=== PATIENT | female | born 1980 | race Hispanic/Latino ===

== ENCOUNTER 2019-08-05 | Emergency (ER) | payer SELFPAY ==
[2019-08-05 10:28] LABS: HEMATOCRIT 44.4 % (37.0-47.0); HEMOGLOBIN 14.8 g/dl (12.0-16.0); IMMATURE GRANULOCYTES 0.3 % (0.0-5.0); MEAN CELL VOLUME 88.1 fL CALC (80.0-100.0); MEAN CORPUSCULAR HGB 29.4 pG CALC (26.0-32.0); MEAN CORPUSCULAR HGB CONC 33.3 g/L CALC (32.0-36.0); NEUT# 5.71 thou/uL (2.00-7.15); RED BLOOD COUNT 5.04 mill/uL (4.20-5.60)
[2019-08-05 10:47] LABS: ALBUMIN 4.9 g/dL (3.2-5.0); ALKALINE PHOSPHATASE 91 u/l (38-126); ANION GAP 15 (6-22 (CALC)); BILIRUBIN, TOTAL 0.8 mg/dL (0.0-1.4); BUN 6 mg/dL (7-17); BUN/CREATININE RATIO 13 (12-20 (CALC)); CARBON DIOXIDE 25 mmol/l (22-30); CHLORIDE 103 mmol/l (95-108); CREATININE 0.4 mg/dL (0.5-1.0); GFR > 60 ML/MIN (>=60 (CALC)); GFR FOR AFR.AMER. > 60 ML/MIN (>=60 (CALC)); POTASSIUM 3.7 mmol/l (3.5-5.1); SGOT/AST 35 u/l (14-36); SODIUM 139 mmol/l (137-146); TOTAL PROTEIN 9.2 g/dL (6.3-8.2)
== END 2019-08-05 12:40 | disposition home or self-care (01) | DRG 313 ==
PROVIDERS: Family Medicine
DX: R07.9 Chest pain, unspecified (principal); R94.31 Abnormal electrocardiogram [ECG] [EKG]; E66.3 Overweight